=== PATIENT | female | born 1965 | race Two or more races ===

== ENCOUNTER 2017-04-23 14:49 | Emergency (ER) | payer MEDICAID ==
[~2017-04-23] VITALS: Ht 167.6 cm; Wt 72.4 kg
[2017-04-23 14:51] VITALS: BP 117/75
[2017-04-23] MEDS ORDERED: ACETAMINOPHEN 500 MG TABLET ONE (15:08)
[2017-04-23] MEDS ORDERED: LIDOCAINE 1%, 20ML ONE (15:08)
[2017-04-23] MEDS ORDERED: BENZOCAINE 20% SPRAY 0.5ML ONE (15:13)
[2017-04-23] MEDS ORDERED: ACETAMINOPHEN 500 MG TABLET PO ONE (15:30)
[2017-04-23] MEDS ORDERED: BENZOCAINE 20% SPRAY 0.5ML TP ONE (15:30)
[2017-04-23] MEDS ORDERED: LIDOCAINE 1%, 20ML INFIL ONE (15:30)
== END 2017-04-23 15:56 | disposition home or self-care (01) ==
LOC: ED 15:54
DX: K04.6 Periapical abscess with sinus (principal); B34.9 Viral infection, unspecified; F17.210 Nicotine dependence, cigarettes, uncomplicated
CPT/HCPCS: 64400; 99284

== ENCOUNTER 2018-09-09 22:20 | Emergency (ER) | payer MEDICAID ==
[~2018-09-09] VITALS: Ht 167.6 cm; Wt 65.2 kg
[2018-09-09 22:22] VITALS: BP 123/78
--- NOTE | 2018-09-09 22:26 | NUR ---
Pt ambulated to room with EDT.
--- NOTE | 2018-09-09 22:30 | NUR ---
Astrid TALLEY, at bedside to evaluate pt.
[2018-09-09] MEDS ORDERED: LIDOCAINE 1%-EPI 1:100K, 20ML ONE (22:33)
[2018-09-09] MEDS ORDERED: HYDROcodone/APAP 5/325 TABLET ONE (22:52)
[2018-09-09] MEDS ORDERED: IBUPROFEN 200 MG TABLET ONE (22:52)
[2018-09-09] MEDS ORDERED: IBUPROFEN 600 MG TABLET PO ONE (23:00)
[2018-09-09] MEDS ORDERED: HYDROcodone/APAP 5/325 TABLET PO ONE (23:00)
[2018-09-09] MEDS ORDERED: LIDOCAINE 1%-EPI 1:100K, 20ML SQ ONE (23:00)
--- NOTE | 2018-09-09 23:18 | NUR ---
Patient/Caregiver given discharge instructions and they have confirmed that they understand the instructions. Patient ambulatory with steady gait.
== END 2018-09-09 23:19 | disposition home or self-care (01) ==
LOC: ED 22:55
DX: K04.7 Periapical abscess without sinus (principal)
CPT/HCPCS: 41800; 99283